=== PATIENT | male | born 1945 | race Caucasian/White ===

== ENCOUNTER → 2021-07-31 | Outpatient (CLI) | payer MEDICARE ==
[~2021-07-31] MED LIST: ALLO300 PO; ASPI81CH PO; ATOR10; ATOR20 PO; BENAML10/5; CEPH500; FEXO180 PO; FISH1000 PO; FURO20; FURO40 PO; GUAN1; GUANFACINE PO; HYDACE5 PO; LEVFLO500 PO; LEVSOD50 PO; MULVITMIND PO; POTA10T PO; POTCHL10ER; TELM40/12. PO; [UNRECOGNIZED DRUG - OTHER]
== END ==
LOC: LAB SHORT 11:19 → LAB 11:19
DX: D48.5 Neoplasm of uncertain behavior of skin (principal)
CPT/HCPCS: 88305

== ENCOUNTER → 2022-02-17 | Outpatient (CLI) | payer OTHER ==
[2022-02-18 19:57] LABS: Creatinine Urine 65.3 mg/dL (27.00-270.00); Microalbumin, Urine Quant. 11.4 mg/L (0.000-20.000); Protein, Urine Quantitative 9.7 mg/dL (0.0-11.9)
== END | disposition home or self-care (01) ==
LOC: LAB 14:24 → LAB SHORT 14:24
PROVIDERS: Internal Medicine Nephrology
DX: N18.30 Chronic kidney disease, stage 3 unspecified (principal); D63.1 Anemia in chronic kidney disease; N25.81 Secondary hyperparathyroidism of renal origin; E55.9 Vitamin D deficiency, unspecified; E78.00 Pure hypercholesterolemia, unspecified; D51.8 Other vitamin B12 deficiency anemias; G60.9 Hereditary and idiopathic neuropathy, unspecified; D52.8 Other folate deficiency anemias; R76.9 Abnormal immunological finding in serum, unspecified; R94.5 Abnormal results of liver function studies; R94.6 Abnormal results of thyroid function studies
CPT/HCPCS: 81050; 82043; 82570; 84156

== ENCOUNTER → 2022-06-20 | Outpatient (CLI) | payer OTHER | END | disposition home or self-care (01) | LOC: LAB 11:46 → LAB SHORT 11:46 | DX: A49.9 Bacterial infection, unspecified (principal); L81.4 Other melanin hyperpigmentation; L82.1 Other seborrheic keratosis; D22.61 Melanocytic nevi of right upper limb, including shoulder; D22.39 Melanocytic nevi of other parts of face; D22.5 Melanocytic nevi of trunk; D22.62 Melanocytic nevi of left upper limb, including shoulder; L70.2 Acne varioliformis; D48.5 Neoplasm of uncertain behavior of skin | CPT/HCPCS: 87070; 87205 ==

== ENCOUNTER 2024-06-24 10:42 | Day surgery (SDC) | payer OTHER ==
[~2024-06-24] VITALS: Ht 177.8 cm; Wt 110.7 kg
[2024-06-24] VITALS (9 sets, daily range): BP systolic 112–138; BP diastolic 49–97
[~2024-06-24 10:42] MED LIST changes: +ACET325 PO; +Carvedilol12.5 MG PO; +FINA5 PO; +HYDCHL12.5 PO; +Halobetasol Pro15 GM; +LORA10ER PO; +LORCET 5-325 M1 EACH PO; +MAGNESIUM OXID400 M1 PO; +OZEMPIC0.25 MG/02 SQ; +PREG50 PO; +ROPI.25 PO; +ROSUVASTATIN CA20 MG PO; +ROSUVASTATIN CAL5 MG PO; +TAMS.4ER PO; +THERA-D2000 UNIT PO; +TORSE20 PO
[2024-06-24] MEDS ORDERED: CeFAZolin Sodium 2,000 MG in NS 100 ML IV SCH (11:15)
[2024-06-24] MEDS ORDERED: Lactated Ringer's 1,000 ML IV SCH (11:15)
[2024-06-24] MEDS ORDERED: Lidocaine HCl 1% 30 ML SDV ONE (14:22)
[2024-06-24] MEDS ORDERED: FentaNYL Citrate 50 MCG/ML 2 ML Injection ONE (14:31)
[2024-06-24] MEDS ORDERED: propofoL 20 ML IV ONE (14:31)
[2024-06-24] MEDS ORDERED: Ondansetron HCl 2 MG / ML 2ML Vial ONE (14:37)
[2024-06-24] MEDS ORDERED: Dexamethasone Sod Phos 10 MG/ML 1ML VIAL ONE (14:37)
[2024-06-24] MEDS ORDERED: OxyCODONE HCL 5 MG TAB PO PRN (15:55)
--- NOTE | 2024-06-24 16:06 | NUR ---
REPORT RECEIVED FROM KAYLAH SCHWARTZ. VSS. PT ON RA. PT [id number]&[id number]. PT ABLE TO REPOSITION SELF IN BED. PT REQUESTING PO FOOD AND FLUIDS AND TOLERATING THEM WELL. PT DENIES PAIN, NAUSEA OR OTHER DISCOMFORTS. PT HAS BRITANY WRAP BANDAGE TO RLE THAT IS C/D/I WITHOUT DRAINAGE, REDNESS OR SWELLING. PT HAS BRISK CAPILLARY REFILL <3 SECONDS AND CAN WIGGLE TOES FREELY TO OPERATIVE SIDE.
--- NOTE | 2024-06-24 16:41 | NUR ---
[id number] Patient up to Ambulate independently. Gait steady. VSS AND CONSISTENT WITH PT BASELINE. PT HAS NO COMPLAINTS AND VERBALIZES READINESS TO GO HOME. Discharge instructions reviewed with patient AND HIS . Patient verbalizes understanding. Copy given to patient to take home. Dressing to procedure site clean, dry, intact with no visible drainage, swelling, erythema or bruising noted. BRISK CAP REFILL. ABLE TO WIGGLE TOES FREELY TO OPERATIVE SIDE. Patient States Post-Procedure ride home has been arranged. Discharged via wheelchair to private car for ride home. PT BELONGINGS RETURNED TO PT.
== END 2024-06-24 16:45 | disposition home or self-care (01) ==
LOC: ORSCMMR 10:42 → ORD 12:30 → ORSCMMR 16:45
PROVIDERS: Orthopaedic Surgery Sports Medicine
PROC: 0SBC4ZZ Excision of Right Knee Joint, Percutaneous Endoscopic Approach (ICD-10-PCS; principal; 2024-06-24 14:00)
DX: M23.203 Derangement of unspecified medial meniscus due to old tear or injury, right knee (principal); M23.41 Loose body in knee, right knee; M94.261 Chondromalacia, right knee; I10 Essential (primary) hypertension; E11.9 Type 2 diabetes mellitus without complications; G47.33 Obstructive sleep apnea (adult) (pediatric); K21.9 Gastro-esophageal reflux disease without esophagitis; Z68.35 Body mass index [BMI] 35.0-35.9, adult; Z79.899 Other long term (current) drug therapy; Z79.82 Long term (current) use of aspirin; Z85.820 Personal history of malignant melanoma of skin; Z79.85 Long-term (current) use of injectable non-insulin antidiabetic drugs
CPT/HCPCS: 82947; J0690; J1100; J2405; J2704; J3010; J7120

== ENCOUNTER 2025-08-04 10:35 | Day surgery (SDC) | payer OTHER ==
[~2025-08-04] VITALS: Ht 175.3 cm; Wt 109.5 kg
[~2025-08-04 10:35] MED LIST changes: +ARTHRITIS PAIN150 GM TOP; +Balanced Salt Epinephrine Irrigation Solution 500 mL IR SCH; +CARV25 PO; -Carvedilol12.5 MG PO; +FERSU300 PO; +INSULANI SC; +JARDIANCE10 MG PO; +LACT PO; +Moxifloxacin HCL 0.5 MG/0.1 ML 0.4MLSYR LEFTEYE SCH; +Norco 5-325 Ta1 EACH PO; +Ondansetron 4 MG SoluTab MM PRN; +PHENYLEPHRINE\\TROPICAMIDE\\TETRACAINE OPHTHALMIC DILATING SOLN LEFTEYE PRN; +Percocet 5-3251 EACH PO; +Povidone-Iodine 450 DROP/30 ML Solution LEFTEYE SCH; +Povidone-Iodine 450 DROP/30 ML Solution ONE; -ROPI.25 PO; +ROPINIROLE HCL4 M1 PO; -THERA-D2000 UNIT PO; +Tetracaine HCl/Pf 0.5% Opth Soln 4 ml ONE; +Triamcinolone Inj Susp 40 MG / ML 1ML Vial INJ SCH; +Triamcinolone Inj Susp 40 MG / ML 1ML Vial ONE; +VITAMIN D310 MC1 PO
[2025-08-04] MEDS ORDERED: NS 1,000 ML IV ONE (12:11)
[2025-08-04] MEDS ORDERED: FentaNYL Citrate 50 MCG/ML 2 ML Injection ONE (12:28)
[2025-08-04] MEDS ORDERED: Midazolam HCl 1MG / ML 2ML Vial ONE (12:29)
[2025-08-04] MEDS ORDERED: Tetracaine HCl 0.5% Opth Soln 15 ml LEFTEYE ONE (12:35)
[2025-08-04 13:10] VITALS: BP 131/58
== END 2025-08-04 13:16 | disposition home or self-care (01) ==
LOC: ORSCSDS 10:35
PROVIDERS: Ophthalmology
PROC: 08RK3JZ Replacement of Left Lens with Synthetic Substitute, Percutaneous Approach (ICD-10-PCS; principal; 2025-08-04 13:00)
DX: E11.36 Type 2 diabetes mellitus with diabetic cataract (principal); H25.812 Combined forms of age-related cataract, left eye; I12.9 Hypertensive chronic kidney disease with stage 1 through stage 4 chronic kidney disease, or unspecified chronic kidney disease; E11.22 Type 2 diabetes mellitus with diabetic chronic kidney disease; N18.9 Chronic kidney disease, unspecified; E66.9 Obesity, unspecified; Z68.44 Body mass index [BMI] 60.0-69.9, adult; Z79.84 Long term (current) use of oral hypoglycemic drugs; Z79.85 Long-term (current) use of injectable non-insulin antidiabetic drugs; Z79.899 Other long term (current) drug therapy
CPT/HCPCS: 82947; J2250; J3010; J3301; V2632

== ENCOUNTER 2025-08-11 11:12 | Day surgery (SDC) | payer OTHER ==
[~2025-08-11] VITALS: Ht 175.3 cm; Wt 112.0 kg
[~2025-08-11 11:12] MED LIST changes: -Moxifloxacin HCL 0.5 MG/0.1 ML 0.4MLSYR LEFTEYE SCH; +Moxifloxacin HCL 0.5 MG/0.1 ML 0.4MLSYR RIGHTEYE SCH; +NS 500 ML IV ONE; -Ondansetron 4 MG SoluTab MM PRN; -PHENYLEPHRINE\\TROPICAMIDE\\TETRACAINE OPHTHALMIC DILATING SOLN LEFTEYE PRN; +PHENYLEPHRINE\\TROPICAMIDE\\TETRACAINE OPHTHALMIC DILATING SOLN RIGHTEYE PRN; -Povidone-Iodine 450 DROP/30 ML Solution LEFTEYE SCH; +Povidone-Iodine 450 DROP/30 ML Solution RIGHTEYE SCH
[2025-08-11] MEDS ORDERED: NS 500 ML IV ONE (12:13)
[2025-08-11] MEDS ORDERED: Midazolam HCl 1MG / ML 2ML Vial ONE (12:14)
[2025-08-11] MEDS ORDERED: Tetracaine HCl 0.5% Opth Soln 15 ml RIGHTEYE ONE (12:25)
[2025-08-11 12:42] VITALS: BP 134/57
== END 2025-08-11 13:03 | disposition home or self-care (01) ==
LOC: ORSCSDS 11:12
PROVIDERS: Ophthalmology
PROC: 08RJ3JZ Replacement of Right Lens with Synthetic Substitute, Percutaneous Approach (ICD-10-PCS; principal; 2025-08-11 13:00)
DX: E11.36 Type 2 diabetes mellitus with diabetic cataract (principal); H25.811 Combined forms of age-related cataract, right eye; Z96.1 Presence of intraocular lens; I10 Essential (primary) hypertension; G47.33 Obstructive sleep apnea (adult) (pediatric); Z79.84 Long term (current) use of oral hypoglycemic drugs; Z79.85 Long-term (current) use of injectable non-insulin antidiabetic drugs; Z79.899 Other long term (current) drug therapy
CPT/HCPCS: 82947; J2250; J3301; J7040; V2632